=== PATIENT | male | born 1990 | race African-American/Black ===

== ENCOUNTER 2022-02-05 16:43 | Emergency (ER) | payer SELFPAY ==
[~2022-02-05] VITALS: Ht 180.3 cm; Wt 79.1 kg
[2022-02-05 16:51] VITALS: BP 132/87; TEMP 97.4
[2022-02-05] MEDS ORDERED: PREDNISONE50 MG PO (18:33)
[2022-02-05 18:44] VITALS: PULSE 85
== END 2022-02-05 18:45 | disposition home or self-care (01) ==
LOC: COL.ER 16:43
DX: J98.01 Acute bronchospasm (principal)
CPT/HCPCS: J7512